=== PATIENT | female | born 1945 | race Hispanic/Latino ===

== ENCOUNTER 2017-11-30 08:27 | Emergency (ER) | payer MEDICARE ==
[~2017-11-30 08:27] MED LIST: CYAN10007 IM; GABA-531 PO; LISI-617 PO; METF10004 PO; METF500T6 PO; OMEP40CA37 PO; SIMV40TA59 PO; TRAM50TA4 PO; vitamin d PO
== END 2017-11-30 09:48 | disposition home or self-care (01) ==
LOC: EDH 08:27
DX: J11.1 Influenza due to unidentified influenza virus with other respiratory manifestations (principal); E11.9 Type 2 diabetes mellitus without complications; E78.5 Hyperlipidemia, unspecified; I10 Essential (primary) hypertension; M81.0 Age-related osteoporosis without current pathological fracture; M19.90 Unspecified osteoarthritis, unspecified site; Z79.4 Long term (current) use of insulin
CPT/HCPCS: 71046; 87804

== ENCOUNTER 2018-12-21 03:46 | Emergency (ER) | payer MEDICARE ==
[~2018-12-21 03:46] MED LIST changes: +METF-444 PO; +METF-446 PO; -METF10004 PO; -METF500T6 PO
[2018-12-21] MEDS ORDERED: METHYLPREDNISOLONE SOD SUCC 125MG/2ML VIAL ONE (04:22)
[2018-12-21] MEDS ORDERED: KETOROLAC TROMETHAMINE 15MG/ML ONE (04:22)
[2018-12-21] MEDS ORDERED: DIAZEPAM 2 MG TAB ONE (04:23)
== END 2018-12-21 05:41 | disposition home or self-care (01) ==
LOC: EDH 03:46
DX: M13.812 Other specified arthritis, left shoulder (principal); M25.512 Pain in left shoulder; E11.9 Type 2 diabetes mellitus without complications; E78.5 Hyperlipidemia, unspecified; M81.0 Age-related osteoporosis without current pathological fracture; Z90.710 Acquired absence of both cervix and uterus
CPT/HCPCS: 93005; 96372 ×2; 99283; J1885; J2930

== ENCOUNTER 2019-04-12 09:04 | Emergency (ER) | payer MEDICARE ==
[2019-04-12 09:40] LABS: BASOPHILS % (AUTO) 0.9 % (0.0-5.0); EOSINOPHILS % (AUTO) 2.9 % (0.0-8.0); HEMATOCRIT 36.2 % (36-48); LYMPHOCYTES % (AUTO) 36.8 % (21.0-51.0); MEAN CORPUSCULAR HEMOGLOBIN 27.9 pg (27.0-33.0); MEAN CORPUSCULAR HGB CONC 32.7 g/dL (32.0-36.0); MEAN CORPUSCULAR VOLUME 85.3 fL (79-99); MONOCYTES % (AUTO) 5.8 % (3.0-13.0); NEUTROPHILS % (AUTO) 53.6 % (40.0-77.0); PLATELET COUNT (AUTO) 160 K/uL (130-400); RED BLOOD CELL COUNT(AUTO) 4.25 MIL/uL (4.00-5.50); RED CELL DISTRIBUTION WIDTH 16.7 % (11.0-15.5); WHITE BLOOD COUNT (AUTO) 3.5 K/uL (4.8-10.8)
[2019-04-12 09:46] LABS: CREATININE 0.5 mg/dL (0.5-1.5); POTASSIUM 4.2 mmol/L (3.5-5.1)
[2019-04-12] MEDS ORDERED: ACETAMINOPHEN 325 MG TAB ONE (09:48)
[2019-04-12] MEDS ORDERED: MECLIZINE HCL 25 MG TABLET ONE (09:48)
[2019-04-12] MEDS ORDERED: SODIUM CHLORIDE 0.9% 1000ML 1,000 ML IV ONE (09:49)
[2019-04-12 09:51] LABS: ALBUMIN 3.4 g/dL (3.5-5.0); BILIRUBIN,TOTAL 0.5 mg/dL (0.2-1.0); TOTAL PROTEIN, SERUM 6.7 g/dL (6.0-8.3)
== END 2019-04-12 11:00 | disposition home or self-care (01) ==
LOC: EDH 09:04
DX: D32.9 Benign neoplasm of meninges, unspecified (principal); E11.42 Type 2 diabetes mellitus with diabetic polyneuropathy; E78.5 Hyperlipidemia, unspecified; I10 Essential (primary) hypertension; M81.0 Age-related osteoporosis without current pathological fracture; Z79.4 Long term (current) use of insulin
CPT/HCPCS: 36415; 70450; 80053; 82550; 84484; 85025; 93005; 99285; J7030

== ENCOUNTER 2019-07-10 08:20 | Emergency (ER) | payer MEDICARE ==
[~2019-07-10 08:20] MED LIST changes: +OMEP40CA13 PO; -OMEP40CA37 PO
[2019-07-10] MEDS ORDERED: KETOROLAC TROMETHAMINE 15MG/ML ONE (08:48)
== END 2019-07-10 13:28 | disposition home or self-care (01) ==
LOC: EDH 08:20
DX: S70.02XA Contusion of left hip, initial encounter (principal); S30.0XXA Contusion of lower back and pelvis, initial encounter; E11.9 Type 2 diabetes mellitus without complications; I10 Essential (primary) hypertension; E78.5 Hyperlipidemia, unspecified; M81.0 Age-related osteoporosis without current pathological fracture; M19.90 Unspecified osteoarthritis, unspecified site; W18.39XA Other fall on same level, initial encounter; Y93.89 Activity, other specified; Y92.89 Other specified places as the place of occurrence of the external cause; Y99.8 Other external cause status
CPT/HCPCS: 72100; 73502; 96374; 99284; J1885

== ENCOUNTER 2019-11-13 13:41 | Observation (INO) | payer MEDICARE ==
[~2019-11-13] VITALS: Ht 152.4 cm; Wt 75.0 kg
[2019-11-13] MEDS ORDERED: RACEPINEPHRINE HCL 2.25% 0.5 ML NEB SOLN ONE (14:01)
[2019-11-13] MEDS ORDERED: DiphenhydrAMINE HCL 50 MG/ML VIAL ONE (14:01)
[2019-11-13] MEDS ORDERED: EPINEPHRINE 1 MG/ML AMPULE ONE (14:06)
[2019-11-13] MEDS: SODIUM CHLORIDE 0.9% 1000ML 1,000 ML IV SCH (20:21)
[2019-11-13] MEDS ORDERED: ONDANSETRON HCL 4 MG/2 ML VIAL IV PRN (20:30)
[2019-11-13] MEDS ORDERED: HYDRALAZINE HCL 20 MG/ML VIAL IV PRN (20:30)
[2019-11-13] MEDS ORDERED: ACETAMINOPHEN 325 MG TAB PO PRN ×2 (20:30)
[2019-11-13] MEDS ORDERED: DIPHENHYDRAMINE HCL 25 MG CAPSULE PO PRN (20:30)
[2019-11-13] MEDS ORDERED: MORPHINE SULFATE 2 MG/ML 1ML SYG IV PRN (20:30)
[2019-11-13] MEDS: FAMOTIDINE/PF 20 MG/2 ML VIAL IV SCH (21:00)
[2019-11-13] MEDS ORDERED: FAMOTIDINE/PF 20 MG/2 ML VIAL IV ONE (22:04)
[2019-11-13] MEDS ORDERED: SODIUM CHLORIDE 0.9% 1000ML 1,000 ML IV ONE (22:11)
[2019-11-13] MEDS ORDERED: FOLI1 PO (23:04)
[2019-11-14] MEDS ORDERED: ONDANSETRON HCL 4 MG/2 ML VIAL ONE (00:49)
[2019-11-14] MEDS ORDERED: INSULIN HUMULIN R 100 UNIT/ML 3ML ONE (02:02)
[2019-11-14] MEDS: TRAMADOL HCL 50 MG TABLET PO SCH ×2 (04:30→09:56)
[2019-11-14] MEDS ORDERED: LISINOPRIL 5 MG TABLET PO ONE (04:30)
[2019-11-14] MEDS ORDERED: LISINOPRIL 5 MG TABLET ONE (05:39)
[2019-11-14 06:18] VITALS: BP 161/75
[2019-11-14 06:23] LABS: BASOPHILS % (AUTO) 0.1 % (0.0-5.0); MEAN CORPUSCULAR HEMOGLOBIN 26.8 pg (27.0-33.0); MEAN CORPUSCULAR HGB CONC 31.8 g/dL (32.0-36.0); MEAN CORPUSCULAR VOLUME 84.1 fL (79-99); MONOCYTES % (AUTO) 4.8 % (3.0-13.0); NEUTROPHILS % (AUTO) 82.8 % (40.0-77.0); PLATELET COUNT (AUTO) 187 K/uL (130-400); RED BLOOD CELL COUNT(AUTO) 4.52 MIL/uL (4.00-5.50); RED CELL DISTRIBUTION WIDTH 16.8 % (11.0-15.5); WHITE BLOOD COUNT (AUTO) 7.8 K/uL (4.8-10.8)
--- NOTE | 2019-11-14 06:30 | NUR ---
Received patient from ER,as per report patient was given insulin sliding scale.Patient is alert and oriented following simple commands.Family to bedside.
[2019-11-14] MEDS ORDERED: METH25VI67 IJ (06:32)
[2019-11-14 06:36] LABS: ALBUMIN 3.6 g/dL (3.5-5.0); BILIRUBIN,TOTAL 0.4 mg/dL (0.2-1.0); CREATININE 0.6 mg/dL (0.5-1.5); POTASSIUM 4.2 mmol/L (3.5-5.1); TOTAL PROTEIN, SERUM 7.1 g/dL (6.0-8.3)
[2019-11-14] MEDS ORDERED: GLUCAGON 1MG KIT 1 MG ML IM PRN (07:15)
[2019-11-14] MEDS ORDERED: DEXTROSE 50%-WATER 50 ML DISP.SYRIN IV PRN (07:15)
[2019-11-14] MEDS: INSULIN HUMULIN R 100 UNIT/ML 3ML SQ SCH ×4 (07:30→20:45)
[2019-11-14 08:19] VITALS: BP 136/77
[2019-11-14] MEDS: METFORMIN HCL 500 MG TAB.SR.24H PO SCH ×2 (09:43→17:56)
[2019-11-14] MEDS: FAMOTIDINE/PF 20 MG/2 ML VIAL IV SCH ×2 (09:44→20:44)
[2019-11-14 11:24] VITALS: BP 139/59
[2019-11-14 16:46] VITALS: BP 144/74
[2019-11-14 20:00] VITALS: BP 138/65
[2019-11-14] MEDS: SODIUM CHLORIDE 0.9% 1000ML 1,000 ML IV SCH (20:45)
[2019-11-14 23:35] VITALS: BP 141/62
[2019-11-15 03:49] VITALS: BP 146/64
[2019-11-15] MEDS: INSULIN HUMULIN R 100 UNIT/ML 3ML SQ SCH (05:41)
[2019-11-15] MEDS: FAMOTIDINE/PF 20 MG/2 ML VIAL IV SCH (08:11)
[2019-11-15] MEDS: METFORMIN HCL 500 MG TAB.SR.24H PO SCH (08:11)
[2019-11-15 08:24] VITALS: BP 145/75
[2019-11-15] MEDS ORDERED: EPIN0.3P2 IM (09:32)
[2019-11-15] MEDS ORDERED: PANTOPRAZOLE SODIUM 40 MG TABLET.DR PO SCH (09:54)
[2019-11-15] MEDS ORDERED: ERGOCALCIFEROL (VITAMIN D2) 50,000 UNIT CAPSULE PO SCH (10:00)
[2019-11-15] MEDS ORDERED: GABAPENTIN 300 MG CAPSULE PO SCH (14:00)
--- NOTE | 2019-11-15 16:20 | NUR ---
PT IN OBS STATUS , NO TRIGGERS TO CM, NO CONCERNS PER PATIENT, CM DETAILED ASSESSMENT DEFERRED AT THIS TIME Addendum: 11/15/19 at 1622 by ENOCH MENDENHALL RN CM Amended: Links added.
[2019-11-15] MEDS ORDERED: METFORMIN HCL 500 MG TABLET PO SCH (17:00)
[2019-11-15] MEDS ORDERED: SIMVASTATIN 20 MG TABLET PO SCH (21:00)
[2019-11-16] MEDS ORDERED: LISINOPRIL 5 MG TABLET PO SCH (09:00)
== END 2019-11-15 10:10 | disposition home or self-care (01) ==
LOC: EDH 13:41 → EDHIP 20:21 → 4DH 11-14 06:17
PROVIDERS: ADMIT Internal Medicine; ATTEND Internal Medicine
DX: T63.441A Toxic effect of venom of bees, accidental (unintentional), initial encounter (principal); E11.9 Type 2 diabetes mellitus without complications; E78.5 Hyperlipidemia, unspecified; I10 Essential (primary) hypertension; I25.119 Atherosclerotic heart disease of native coronary artery with unspecified angina pectoris; M19.90 Unspecified osteoarthritis, unspecified site; M81.0 Age-related osteoporosis without current pathological fracture; L50.0 Allergic urticaria; M54.5 Low back pain; F17.200 Nicotine dependence, unspecified, uncomplicated; Z79.4 Long term (current) use of insulin; Z79.899 Other long term (current) drug therapy; Z88.1 Allergy status to other antibiotic agents; X58.XXXA Exposure to other specified factors, initial encounter; Y92.89 Other specified places as the place of occurrence of the external cause
CPT/HCPCS: 36415; 80053; 82948 ×6; 85025; 94640; 96374; 96376 ×2; 99284; G0378 ×38; J0171; J1200; J1815; J2405; J3490 ×3; J7030

== ENCOUNTER → 2020-11-11 | Outpatient (CLI) | payer MEDICARE ==
[~2020-11-11] MED LIST changes: -CYAN10007 IM; +EPIN0.3P2 IM; +FOLI1 PO; -LISI-617 PO; +LISI-809 PO; +METH25VI67 IJ
== END | disposition home or self-care (01) ==
LOC: RAH 10:28
PROVIDERS: ATTEND Family Medicine
DX: I08.2 Rheumatic disorders of both aortic and tricuspid valves (principal); R55 Syncope and collapse; R94.31 Abnormal electrocardiogram [ECG] [EKG]; I10 Essential (primary) hypertension; E66.9 Obesity, unspecified; E11.9 Type 2 diabetes mellitus without complications
CPT/HCPCS: 93306; 93356

== ENCOUNTER → 2024-02-08 | Outpatient (CLI) | payer MEDICARE ==
[~2024-02-08] MED LIST changes: -LISI-809 PO; +LISI5TAB21 PO; -OMEP40CA13 PO; +OMEP40CA21 PO
== END | disposition home or self-care (01) ==
LOC: SHCH 14:13
PROVIDERS: ATTEND Internal Medicine Cardiovascular Disease
DX: I08.8 Other rheumatic multiple valve diseases (principal); R07.9 Chest pain, unspecified
CPT/HCPCS: 93306

== ENCOUNTER → 2024-02-11 | Outpatient (CLI) | payer MEDICARE ==
[2024-02-11] MEDS: REGADENOSON 0.4 MG/5 ML PF SYG IVP ONE (11:15)
== END | disposition home or self-care (01) ==
LOC: SHCH 07:44
PROVIDERS: ATTEND Internal Medicine Cardiovascular Disease
DX: I44.7 Left bundle-branch block, unspecified (principal); R07.9 Chest pain, unspecified
CPT/HCPCS: 78452; 96374; 93017; J2785; A9500 ×2

== ENCOUNTER → 2024-03-07 | Outpatient (CLI) | payer MEDICARE ==
[2024-03-07 12:11] LABS: CREATININE 0.6 mg/dL (0.5-1.0)
== END | disposition home or self-care (01) ==
LOC: LAB 08:23
PROVIDERS: ATTEND Internal Medicine Cardiovascular Disease
DX: I10 Essential (primary) hypertension (principal); R94.31 Abnormal electrocardiogram [ECG] [EKG]
CPT/HCPCS: 36415; 80048

== ENCOUNTER → 2024-03-14 | Outpatient (CLI) | payer MEDICARE ==
[~2024-03-14] MED LIST changes: +IOHEXOL 350 MG/ML 100ML INFUS..BTL IV ONE; +METOPROLOL TARTRATE 1 MG/ML 5ML VIAL IV ONE
== END | disposition home or self-care (01) ==
LOC: RAH 09:48
PROVIDERS: ATTEND Internal Medicine Cardiovascular Disease
DX: R07.9 Chest pain, unspecified (principal); M47.815 Spondylosis without myelopathy or radiculopathy, thoracolumbar region
CPT/HCPCS: 75574; J3490; Q9967